=== PATIENT | male | born 1980 | race Caucasian/White ===

== ENCOUNTER 2022-02-27 02:38 | Emergency (ER) | payer MEDICAID, SELFPAY ==
[2022-02-27 03:51] VITALS: BP 141/76; PULSE 81; RESP 18; TEMP 36.6; O2SAT 100; BMI 36.2
== END 2022-02-27 04:10 | disposition left against medical advice (07) ==
LOC: HO.ED 03:54
PROVIDERS: Emergency Provider Emergency Medicine
DX: S00.01XA Abrasion of scalp, initial encounter (principal); X99.0XXA Assault by sharp glass, initial encounter; Y93.9 Activity, unspecified; Y92.9 Unspecified place or not applicable; Y99.9 Unspecified external cause status
CPT/HCPCS: 99281